=== PATIENT | male | born 1980 | race Two or more races ===

== ENCOUNTER 2018-03-01 14:39 | Emergency (ER) | payer SELFPAY ==
[2018-03-01] MEDS ORDERED: Sodium Chloride 0.9% 2.5 ML Syringe FLUSH PRN (14:44)
[2018-03-01] MEDS ORDERED: Sodium Chloride 0.9% 1,000 ML IV ONE (14:44)
[2018-03-01] MEDS ORDERED: Sodium Chloride 0.9% 10 ML Syringe FLUSH PRN (14:44)
[2018-03-01] MEDS ORDERED: Ondansetron 4 MG/2 ML SDV IVPUSH ONE (14:45)
[2018-03-01] MEDS ORDERED: Morphine 2 MG/ML Syringe IVPUSH ONE (14:45)
[2018-03-01] MEDS ORDERED: Diphtheria,Pertussis(Acell),Tetanus Vaccine 0.5 ML Syringe IM ONE (14:46)
--- NOTE | 2018-03-01 14:46 | EDM.PDOC ---
ED HPI GENERAL MEDICAL PROBLEM - General Chief Complaint: Lower Extremity Injury/Pain Stated Complaint: CUT TO HIS FOOT Time Seen by Provider: 03/01/18 14:43 - History of Present Illness INITIAL COMMENTS - FREE TEXT/NARRATIVE: HISTORY AND PHYSICAL: History of present illness: The patient is a 37-year-old male with no stated medical problems who presents when he was at work using a saw and cutting rebar and the blade came off of the saw and struck him in the right lower leg. Prior to these events the patient had no systemic complaints and was in his usual state of good health. He thinks his last tetanus shot was 8 years ago and he comes in with a tourniquet on his right thigh and a large wound at his anterior right lower leg. The patient denies any other injuries. He did not take any pain medicines prior to coming here. He says that he can feel everything distally in his ankle and foot and he has only pain at the site of the large laceration. The patient says that he last ate a large lunch approximately 2-3 hours ago. The patient had on jeans and the blade went through the jeans causing this laceration. Review of systems: As per history of present illness and below otherwise all systems reviewed and negative. Past medical history: As per history of present illness and as reviewed below otherwise noncontributory. Surgical history: As per history of present illness and as reviewed below otherwise noncontributory. Social history: No reported history of drug or alcohol abuse. Family history: As per history of present illness and as reviewed below otherwise noncontributory. Physical exam: General: Well-developed well-nourished man who is nontoxic and looks very uncomfortable in the room. Throughout the course of my evaluation the tourniquet was removed that had been placed on in the field.. Vital signs are noted by me HEENT: Atraumatic, normocephalic, negative for conjunctival pallor or scleral icterus, mucous membranes moist, throat clear, neck supple, nontender, trachea midline. Lungs: Clear to auscultation, breath sounds equal bilaterally, chest nontender. Heart: S1S2, regular rate and rhythm no overt murmurs Abdomen: Soft, nondistended, nontender. Negative for masses or hepatosplenomegaly. NABS Pelvis: Stable nontender. Genitourinary: Deferred. Rectal: Deferred. Extremities: Atraumatic with full range of motion of all extremities with the exception of the right lower leg. At mid shaft tibial area there is a 14 cm long by 3 cm wide gaping wound with visible bone and muscle. There is no aggressive or active bleeding. The surrounding tissue is not contused bruised or swollen. The distal dorsalis pedis and posterior tibial arteries are palpable and triphasic. There is good cap refill and color distally in the ankle and foot and the patient has good sensation. The patient can dorsi and plantar flex the foot but it is somewhat weak and it is difficult to ascertain if his pain related. The wound is dirty. Neurovascular unremarkable. Neuro: Awake, alert, oriented. Cranial nerves II through XII unremarkable. Cerebellum unremarkable. Motor and sensory unremarkable throughout. Exam nonfocal. Diagnostics: X-ray right tib-fib Therapeutics: Tdap, IV fluids Zofran morphine Ancef, copious 2L irrigation of the wound, dilaudid clean dressing Reevaluation after some pain medications have been given the patient can dorsi and plantar flex the foot only minimally and it is very weak. We currently do not have orthopedics available and I will be contacting [facility] in [place] for the transfer. 1515: Case was discussed with Dr. Jiménez at [facility] in [place] and she accepts the patient for transfer. The patient will go to the ED and be evaluated for orthopedics involvement. The patient and family are aware of this care plan as orthopedics is not available here. Impression: Deep tissue laceration right lower extremity with tiny cortical defect of the medial tibia Definitive disposition and diagnosis as appropriate pending reevaluation and review of above. Right Lower Leg Pain Score (Numeric/FACES): 10 - Related Data Allergies Allergy/AdvReac Type Severity Reaction Status Date / Time No Known Allergies Allergy Verified 03/01/18 14:45 Home Meds: Home Meds . [No Known Home Meds] 03/01/18 [History] Review of Systems - Review of Systems Review Of Systems: ROS reveals no pertinent complaints other than HPI. ED EXAM, GENERAL - Physical Exam Exam: See Below (See dictation) Course - Vital Signs Last Recorded V/S: Last Vital Signs Temp 36.4 C 03/01/18 14:42 Pulse 94 03/01/18 14:42 Resp 24 H 03/01/18 14:42 BP 143/75 H 08/29/18 14:42 Pulse Ox 95 03/01/18 14:42 - Orders/Labs/Meds Orders: Active Orders 24 hr Category Date Time Status Communication Order [RC] STAT Care 03/01/18 14:45 Active Vaccines to be Administered [RC] PER UNIT ROUTINE Care 03/01/18 14:46 Active Sodium Chloride 0.9% [Normal Saline] 1,000 ml Med 03/01/18 14:44 Active IV STAT Sodium Chloride 0.9% [Saline Flush] Med 03/01/18 14:44 Active 10 ml FLUSH ASDIRECTED PRN Sodium Chloride 0.9% [Saline Flush] Med 03/01/18 14:44 Active 2.5 ml FLUSH ASDIRECTED PRN ceFAZolin [Ancef] 2,000 mg Med 03/01/18 14:44 Active Sodium Chloride 0.9% [Normal Saline] 100 ml IV ONETIME Saline Lock Insert [OM.PC] Stat Oth 03/01/18 14:44 Ordered Medication Orders Cefazolin Sodium 2,000 mg/ (Sodium Chloride) 100 mls @ 100 mls/hr IV ONETIME ONE Stop: 03/01/18 15:43 Sodium Chloride (Normal Saline) 1,000 mls @ 999 mls/hr IV STAT ONE Stop: 03/01/18 15:44 Last Admin: 03/01/18 14:49 Dose: 999 mls/hr Sodium Chloride (Saline Flush) 10 ml FLUSH ASDIRECTED PRN PRN Reason: Keep Vein Open Sodium Chloride (Saline Flush) 2.5 ml FLUSH ASDIRECTED PRN PRN Reason: Keep Vein Open Meds: Medications Generic Name Dose Route Start Last Admin Trade Name Freq PRN Reason Stop Dose Admin Cefazolin Sodium 2,000 mg/ 100 mls @ 100 mls/hr 03/01/18 14:44 Sodium Chloride IV 03/01/18 15:43 ONETIME ONE Sodium Chloride 1,000 mls @ 999 mls/hr 03/01/18 14:44 03/01/18 14:49 Normal Saline IV 03/01/18 15:44 999 mls/hr STAT ONE Administration Sodium Chloride 10 ml 03/01/18 14:44 Saline Flush FLUSH ASDIRECTED PRN Keep Vein Open Sodium Chloride 2.5 ml 03/01/18 14:44 Saline Flush FLUSH ASDIRECTED PRN Keep Vein Open Discontinued Medications Generic Name Dose Route Start Last Admin Trade Name Tom PRN Reason Stop Dose Admin Cefazolin Sodium/Dextrose Confirm 03/01/18 14:50 03/01/18 15:03 Ancef Administered 03/01/18 14:51 2 gm Dose Administration 2 gm IV .STK-MED ONE Diphtheria/Tetanus/Acell Pertussis 0.5 ml 03/01/18 14:46 03/01/18 15:13 Adacel IM 03/01/18 14:47 0.5 ml .ONCE ONE Administration Hydromorphone HCl Confirm 03/01/18 15:06 Dilaudid Administered 03/01/18 15:07 Dose 1 mg .ROUTE .STK-MED ONE Morphine Sulfate 4 mg 03/01/18 14:45 03/01/18 14:55 Morphine IVPUSH 03/01/18 14:46 4 mg ONETIME ONE Administration Ondansetron HCl 4 mg 03/01/18 14:45 03/01/18 14:55 Zofran IVPUSH 03/01/18 14:46 4 mg ONETIME ONE Administration Departure - Departure Time of Disposition: 15:19 Disposition: DC/Tfer to Acute Hospital 02 Condition: Good Clinical Impression: Laceration of right lower leg with complication Qualifiers: Encounter type: initial encounter Qualified Code(s): S81.811A - Laceration without foreign body, right lower leg, initial encounter - Discharge Information Forms: ED Department Discharge - My Orders Last 24 Hours: My Active Orders 03/01/18 14:44 Sodium Chloride 0.9% [Normal Saline] 1,000 ml IV STAT Sodium Chloride 0.9% [Saline Flush] 10 ml FLUSH ASDIRECTED PRN Sodium Chloride 0.9% [Saline Flush] 2.5 ml FLUSH ASDIRECTED PRN ceFAZolin [Ancef] 2,000 mg Sodium Chloride 0.9% [Normal Saline] 100 ml IV ONETIME Saline Lock Insert [OM.PC] Stat 03/01/18 14:45 Communication Order [RC] STAT 03/01/18 14:46 Vaccines to be Administered [RC] PER UNIT ROUTINE - Assessment/Plan Last 24 Hours: My Active Orders 03/01/18 14:44 Sodium Chloride 0.9% [Normal Saline] 1,000 ml IV STAT Sodium Chloride 0.9% [Saline Flush] 10 ml FLUSH ASDIRECTED PRN Sodium Chloride 0.9% [Saline Flush] 2.5 ml FLUSH ASDIRECTED PRN ceFAZolin [Ancef] 2,000 mg Sodium Chloride 0.9% [Normal Saline] 100 ml IV ONETIME Saline Lock Insert [OM.PC] Stat 03/01/18 14:45 Communication Order [RC] STAT 03/01/18 14:46 Vaccines to be Administered [RC] PER UNIT ROUTINE
[2018-03-01] MEDS ORDERED: ceFAZolin/Dextrose,Iso-Osmotic 2 GM/50 ML Duplex Bag IV ONE (14:50)
[2018-03-01] MEDS ORDERED: HYDROmorphone 1 MG/ML Syringe ONE ×3 (15:06→19:24)
[2018-03-01] MEDS ORDERED: HYDROmorphone 1 MG/ML Syringe IVPUSH ONE ×3 (15:06→19:25)
--- NOTE | 2018-03-01 15:06 | CR ---
EXAMINATION: Right tibia and fibula HISTORY: Pain COMPARISON: None TECHNIQUE: 2 views FINDINGS: There is a large medial cutaneous laceration noted, extending to the bone. There is likely a tiny cortical defect along the medial aspect of the tibia. Multiple punctate densities are noted al sandra the laceration margin, likely debris. Remaining osseous structures and joint spaces appear preser duke. Bone mineralization is otherwise normal. IMPRESSION: Large medial cutaneous laceration likely extending to the bone.
[2018-03-01] MEDS ORDERED: Ketorolac 30 MG/ML SDV IVPUSH ONE (16:02)
[2018-03-01] MEDS ORDERED: Lactated Ringers 1,000 ML IV SCH (16:45)
[2018-03-01] MEDS ORDERED: Clindamycin Phosphate in D5W 600 MG in Premix Bag 50 BAG IV ONE ×2 (17:26)
== END 2018-03-01 19:33 ==
LOC: MW.ED 14:39
DX: S81.811A Laceration without foreign body, right lower leg, initial encounter (principal); Z23 Encounter for immunization; W31.2XXA Contact with powered woodworking and forming machines, initial encounter
CPT/HCPCS: 73590; 90471; 90715; 96365; 96366; 96367; 96368; 96375; 96376; 99285; J0690; J1170; J1885; J2270; J2405; J3490; J7030; J7040; J7120